=== PATIENT | female | born 1995 | race Caucasian/White ===

== ENCOUNTER 2018-08-07 22:16 | Emergency (ER) | payer OTHER ==
[~2018-08-07] VITALS: Ht 170.2 cm; Wt 77.9 kg
[2018-08-07 22:19] VITALS: BP 133/77
--- NOTE | 2018-08-07 22:44 | NUR ---
XRAY DELAY - PT NOT IN C-COLLAR & NOT LYING FLAT. PA NOTIFIED.
[2018-08-07] MEDS ORDERED: KETOROLAC 30 MG/1 ML ONE (23:00)
[2018-08-07] MEDS ORDERED: KETOROLAC 30 MG/1 ML IM ONE (23:00)
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
--- NOTE | 2018-08-07 23:09 | NUR ---
radiology paged to notify pt ready for xray
--- NOTE | 2018-08-07 23:17 | NUR ---
pt to radiology at this time
--- NOTE | 2018-08-07 23:51 | NUR ---
report to NATHAN Esposito pt in radiology at this time.
== END 2018-08-08 00:17 | disposition home or self-care (01) ==
LOC: ED 08-08 00:10
DX: S16.1XXA Strain of muscle, fascia and tendon at neck level, initial encounter (principal); S29.012A Strain of muscle and tendon of back wall of thorax, initial encounter; V49.49XA Driver injured in collision with other motor vehicles in traffic accident, initial encounter; Y93.89 Activity, other specified; Y92.89 Other specified places as the place of occurrence of the external cause; Y99.8 Other external cause status
CPT/HCPCS: 72020; 72050; 72072; 96372; 99283; J1885

== ENCOUNTER 2019-06-30 20:20 | Inpatient (IN) | payer OTHER ==
[~2019-06-30] VITALS: Ht 170.2 cm; Wt 81.1 kg
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
--- NOTE | 2019-06-30 20:48 | NUR ---
REPORT GIVEN TO CHRISTY EVANS
--- NOTE | 2019-06-30 20:48 | NUR ---
sitter outside camera room for pt safety. records have been requested from [facility] as was seen there earlier today
--- NOTE | 2019-06-30 20:49 | NUR ---
all monitors attached.
[2019-06-30] MEDS ORDERED: SODIUM CHLORIDE 0.9% 1,000ML IVBOLUS ONE (21:30)
[2019-06-30 21:55] LABS: BASOPHILS # (AUTO) 0.04 x10^3/uL (0-0.1); BASOPHILS % (AUTO) 1 % (0-1); EOSINOPHILS # (AUTO) 0.31 x10^3/uL (0-0.4); EOSINOPHILS % (AUTO) 4 % (1-7); LYMPHOCYTES # (AUTO) 1.95 x10^3/uL (1-3.4); LYMPHOCYTES % (AUTO) 23 % (22-44); MD NO; MEAN CORPUSCULAR HEMOGLOBIN 29.9 pg (27.0-34.8); MEAN CORPUSCULAR HGB CONC 33.9 g/dL (32.4-35.8); MEAN CORPUSCULAR VOLUME 88.2 fL (80-100); MONOCYTES # (AUTO) 0.82 x10^3/uL (0.2-0.8); MONOCYTES % (AUTO) 10 % (2-9); NEUTROPHILS # (AUTO) 5.39 x10^3/uL (1.8-6.8); NEUTROPHILS % (AUTO) 63 % (42-75); PLATELET COUNT 259 x10^3/uL (130-400); RED BLOOD COUNT 4.78 x10^6/uL (3.82-5.3); RED CELL DISTRIBUTION WIDTH 12.8 % (9.6-15.2)
--- NOTE | 2019-06-30 22:00 | NUR ---
pt presents to ED with altered mental status. at bedside and said that all symptoms started this morning. she was normal and all of the sudden had a syncopal episode followed by severe confusion. pt was taken to [facility] and discharged, per request. pt went home and quickly deteriorated. pt here, minimally verbal, oriented only to place. sitter at bedside for 1:1 observation becuase pt keeps trying to get out of bed. consent signed by for medications, lubmar puncture and mri.
--- NOTE | 2019-06-30 22:01 | NUR ---
pt continually trying to get out of bed. verbal instructions are not working. sitter at beside to ensure pt saftey.
[2019-06-30 22:05] LABS: ALANINE AMINOTRANSFERASE 36 U/L (12-78); ALBUMIN 3.3 g/dL (3.4-5.0); ANION GAP 5 mmol/L (5-15); CALCIUM 8.4 mg/dL (8.5-10.1); CHLORIDE 112 mmol/L (98-107); CREATININE 0.89 mg/dL (0.55-1.02)
[2019-06-30 22:10] LABS: ALKALINE PHOSPHATASE 54 U/L (45-117); BILIRUBIN,TOTAL 0.4 mg/dL (0.2-1.0); SALICYLATE LEVEL < 1.7 mg/dL (2.8-20.0); TOTAL PROTEIN 6.8 g/dL (6.4-8.2)
--- NOTE | 2019-06-30 22:29 | NUR ---
sitter at bedside for 1:1 saftey monitoring.
[2019-06-30] MEDS ORDERED: KETAMINE 100 MG/ML, 5ML IV ONE (22:30)
--- NOTE | 2019-06-30 22:32 | NUR ---
contact ko [phone] and mother janeth [phone]
[2019-06-30] MEDS ORDERED: KETAMINE 10 MG/ML, 20ML ONE ×2 (22:49→23:57)
[2019-06-30 23:22] LABS: AMPHETAMINE SCREEN, URINE Negative (Negative); BARBITURATE SCREEN, URINE Negative (Negative); BENZODIAZEPINE SCREEN, URINE Positive (Negative); CANNABINOID SCREEN, URINE Negative (Negative); COCAINE SCREEN, URINE Negative (Negative); METHADONE SCREEN, URINE Negative (Negative); OPIATE SCREEN, URINE Negative (Negative)
[2019-06-30] MEDS ORDERED: GADOTERATE 10 MMOL/20 ML SYR ONE (23:46)
[2019-07-01] MEDS ORDERED: LORazepam 2 MG/ML, 1ML ONE (00:19)
[2019-07-01] MEDS ORDERED: LIDOCAINE-MPF 1%, 5ML ONE (00:56)
[2019-07-01] MEDS ORDERED: ONDANSETRON 2MG/ML, 2ML ONE (01:20)
[2019-07-01] MEDS ORDERED: KETAMINE 10 MG/ML, 20ML IV ONE (01:30)
[2019-07-01] MEDS ORDERED: ONDANSETRON 2MG/ML, 2ML IVPush ONE (01:30)
[2019-07-01] MEDS ORDERED: LORazepam 2 MG/ML, 1ML IVPush ONE (01:30)
[2019-07-01 01:31] LABS: GLUCOSE, CSF 55 mg/dL (40-80); TOTAL PROTEIN,CSF 25 mg/dL (15-45)
--- NOTE | 2019-07-01 01:39 | NUR ---
pt returned from MRI. er naun and myself in to perform lumbar puncture. pt tolerated procedure well and CSF walked to lab.
--- NOTE | 2019-07-01 01:41 | NUR ---
ketamine and ativan administered in MRI for sedation. see procedure paperwork with paper chart for VS and procedure details.
--- NOTE | 2019-07-01 01:52 | NUR ---
100 MG KETAMINE WASTED WITH CHRISTY RN
--- NOTE | 2019-07-01 03:59 | NUR ---
pt resting on gurney with eyes closed. respirations even and unlabored. sitter at doorway for frequent checks.
[2019-07-01 05:09] LABS: MICROSCOPIC NOT IND
[2019-07-01 05:12] LABS: CULTURE INDICATED? NO
--- NOTE | 2019-07-01 05:21 | NUR ---
REPORT TO NATHAN SKELTON
[2019-07-01 06:06] VITALS: BP 101/57
[2019-07-01 07:15] VITALS: BP 101/57
[2019-07-01 13:38] VITALS: BP 101/51
[2019-07-01] MEDS: SODIUM CHLORIDE 0.9% 1,000 ML IV SCH (18:29)
[2019-07-01 20:45] VITALS: BP 114/69
[2019-07-02 02:58] VITALS: BP 115/67
[2019-07-02] MEDS: SODIUM CHLORIDE 0.9% 1,000 ML IV SCH (05:10)
[2019-07-02 05:40] LABS: BASOPHILS # (AUTO) 0.08 x10^3/uL (0-0.1); BASOPHILS % (AUTO) 1 % (0-1); EOSINOPHILS # (AUTO) 0.31 x10^3/uL (0-0.4); EOSINOPHILS % (AUTO) 4 % (1-7); LYMPHOCYTES # (AUTO) 2.49 x10^3/uL (1-3.4); LYMPHOCYTES % (AUTO) 31 % (22-44); MD NO; MEAN CORPUSCULAR HEMOGLOBIN 29.6 pg (27.0-34.8); MEAN CORPUSCULAR HGB CONC 33.6 g/dL (32.4-35.8); MEAN PLATELET VOLUME 8.2 fL (7.4-10.4); MONOCYTES # (AUTO) 0.73 x10^3/uL (0.2-0.8); MONOCYTES % (AUTO) 9 % (2-9); NEUTROPHILS % (AUTO) 55 % (42-75); PLATELET COUNT 243 x10^3/uL (130-400); RED BLOOD COUNT 4.73 x10^6/uL (3.82-5.3); RED CELL DISTRIBUTION WIDTH 13.3 % (9.6-15.2)
[2019-07-02 05:51] LABS: ANION GAP 7 mmol/L (5-15); CALCIUM 8.2 mg/dL (8.5-10.1); CHLORIDE 110 mmol/L (98-107)
[2019-07-02 05:52] LABS: CREATININE 0.98 mg/dL (0.55-1.02)
[2019-07-02 07:30] VITALS: BP 102/60
[2019-07-02] MEDS ORDERED: LEVETIRACETAM 500 MG TABLET PO SCH (12:00)
[2019-07-02] MEDS ORDERED: LEVE500T53 PO (12:50)
[2019-07-02 13:29] VITALS: BP 114/64
== END 2019-07-02 15:18 | disposition home or self-care (01) | DRG 72 ==
LOC: ED 07-01 01:29 → EDIP 07-01 02:38 → 4WST 07-01 05:40
PROVIDERS: ADMIT Family Medicine; ATTEND Internal Medicine Infectious Disease
PROC: 009U3ZX Drainage of Spinal Canal, Percutaneous Approach, Diagnostic (ICD-10-PCS; principal; 2019-07-01)
DX: G93.40 Encephalopathy, unspecified (principal); F29 Unspecified psychosis not due to a substance or known physiological condition; G40.209 Localization-related (focal) (partial) symptomatic epilepsy and epileptic syndromes with complex partial seizures, not intractable, without status epilepticus; Z88.8 Allergy status to other drugs, medicaments and biological substances
CPT/HCPCS: 36415; 62270; 70553; 80048; 80053; 80307; 81003; 82140; 82945; 82962; 84146; 84157; 84443; 84703; 85025; 86592; 87070; 87205; 87252; 87806; 89051; 95819; 96361; 96374; 99152; G0378; J2405; A9575; G0475; J2060; J7030

== ENCOUNTER 2019-07-03 13:56 | Emergency (ER) | payer OTHER ==
[~2019-07-03] VITALS: Ht 170.2 cm; Wt 77.5 kg
[~2019-07-03 13:56] MED LIST: LEVE500T53 PO
--- NOTE | 2019-07-03 14:17 | NUR ---
PT REFUSES FURTHER TESTING AT THIS TIME WITH DR GOMEZ ASSESSMENT. CONT TO MONITOR PER
--- NOTE | 2019-07-03 16:23 | NUR ---
MARY WARREN AT BEDSIDE. PSYCH EVAL IN PROGRESS
[2019-07-03 17:23] VITALS: BP 116/77
--- NOTE | 2019-07-03 17:45 | NUR ---
OK TO DC PER MARY COTTONN
== END 2019-07-03 18:59 | disposition home or self-care (01) ==
LOC: ED 18:40
DX: F41.1 Generalized anxiety disorder (principal)
CPT/HCPCS: 99285